=== PATIENT | male | born 2005 | race Hispanic/Latino ===

== ENCOUNTER 2025-02-14 22:09 | Emergency (ER) | payer SELFPAY ==
[~2025-02-14] VITALS: Ht 165.1 cm; Wt 56.7 kg
[2025-02-14 22:09] VITALS: BP 110/52; PULSE 103; RESP 16; O2SAT 100
[2025-02-14] MEDS ORDERED: NS 1000ML 1,000 ML ONE (22:30)
[2025-02-14] MEDS: NS 1000ML 1,000 ML IV STA (22:33)
[2025-02-14 22:36] VITALS: BP 117/53; PULSE 77; RESP 16; O2SAT 99
[2025-02-14 22:42] LABS: BASOPHIL # 0.0 10^3/uL (0.0-0.1); BASOPHIL % 0.5 % (0.2-1.2); EOSINOPHIL # 0.3 10^3/uL (0.0-0.2); EOSINOPHIL % 4.6 % (0.0-5.0); HEMATOCRIT(ML) 40.4 % (37.0-53.0); IG % 0.20 % (0.00-0.50); LYMPHOCYTES # 2.54 10^3/uL1 (1.0-4.8); LYMPHOCYTES % 42.0 % (24.0-44.0); MEAN CORP HGB 32.0 pg (26-34); MEAN CORP HGB CONCENTRATION 33.4 g/dL (33-36.5); MEAN CORP VOLUME 95.7 fL (78-100); MONOCYTES # 0.7 10^3/uL (0.3-0.8); MONOCYTES % 10.9 % (5.0-12.0); NEUTROPHIL # 2.5 10^3/uL (1.8-7.7); NEUTROPHILS % 41.8 % (41.0-85.0); RED BLOOD CELL 4.22 10^6/uL (4.50-5.90); RED CELL DISTRIBUTION WIDTH 12.4 % (11.5-14.5); WHITE BLOOD CELL 6.1 10^3/uL (4.5-11.0)
[2025-02-14 22:52] LABS: ALANINE AMINOTRANSFERASE(ML) 20.0 U/L (12-78); ALBUMIN(ML) 3.7 g/dL (3.4-5.0); CREATININE SERUM 0.69 mg/dL (0.59-1.40); EST GFR, NON-AA 144.7 (>/=60)
[2025-02-14 23:39] VITALS: BP 98/53; PULSE 85; RESP 16; O2SAT 99
[2025-02-15 00:28] LABS: LEUKOCYTE ESTERASE ,URINE NEGATIVE (NEGATIVE); NITRATE,URINE NEGATIVE (NEGATIVE)
[2025-02-15 00:29] LABS: APPEARANCE,URINE CLEAR; UA COLOR YELLOW
[2025-02-15 00:33] VITALS: BP 99/55; PULSE 87; RESP 16; O2SAT 100
[2025-02-15 00:39] LABS: UAMPH METHAMP(SCRN) NEGATIVE (co1000ng/mL); UR MDMA (ECSTASY) SCRN NEGATIVE (c/o300ng/mL); UR METHADONE SCRN NEGATIVE (c/o300ng/mL); UR OPIATE SCRN NEGATIVE (c/o300ng/mL); UR PHENCYCLIDINE (PCP) SCRN NEGATIVE (c/o 25ng/mL); UR TETRAHYDROCANNABINOL SCRN NEGATIVE (c/o 50ng/mL)
[2025-02-15 01:22] VITALS: BP 110/83; PULSE 80; RESP 16; O2SAT 100
== END 2025-02-15 01:21 | disposition home or self-care (01) ==
LOC: ER 22:09 → EDBD 22:09 → ER 02-15 01:21
DX: F10.129 Alcohol abuse with intoxication, unspecified (principal); Y90.9 Presence of alcohol in blood, level not specified
CPT/HCPCS: 99283; 96360; 80053; 85025; 36415; 80307; 82077; 81003; J7030